=== PATIENT | female | born 2000 | race Caucasian/White ===

== ENCOUNTER 2019-06-29 21:21 | Emergency (ER) | payer BC ==
[~2019-06-29] VITALS: Ht 160 cm; Wt 63.0 kg
[2019-06-29 21:41] LABS: ABSOLUTE NEUTROPHILS 2.7 thou/uL (1.4-8.2); BASOPHILS 0.6 % (0.0-2.0); HEMATOCRIT 38.7 % (37.0-47.0); HEMOGLOBIN 13.5 gm/dL (12.0-15.0); LYMPHOCYTES 51.9 % (24.0-44.0); MCH 30.3 pg (26.0-34.0); MCV 86.6 fL (80.0-100.0); MONOCYTES 6.4 % (1.0-8.0); PLATELET COUNT 227 thou/uL (150-400); POLYS 38.1 % (36.0-66.0); RBC 4.47 mil/uL (4.20-5.00)
[2019-06-29] MEDS ORDERED: ONDANSETRON HCL4 M2 PO (21:41)
[2019-06-29 21:47] LABS: URINE BILIRUBIN NEGATIVE (Negative); URINE BLOOD NEGATIVE (Negative); URINE CLARITY CLEAR; URINE COLOR YELLOW; URINE GLUCOSE-RANDOM* NEGATIVE (Negative); URINE KETONES NEGATIVE (Negative); URINE LEUKOCYTES-REFLEX NEGATIVE (Negative); URINE NITRITE-REFLEX NEGATIVE (Negative); URINE PROTEIN (DIPSTICK) NEGATIVE (Negative); URINE SPECIFIC GRAVITY <= 1.005 (1.005-1.035); URINE UROBILINOGEN 0.2 E.U./dl (0.2-1.0)
[2019-06-29 21:53] LABS: CALCIUM 9.4 mg/dL (8.5-10.1); POTASSIUM 3.5 mmol/L (3.5-5.1)
[2019-06-29 21:58] LABS: AMP/METHAMP Negative (Negative); BARBITURATES Negative (Negative); BENZODIAZEPINES Negative (Negative); COCAINE Negative (Negative); METHADONE Negative (Negative); OPIATES Negative (Negative); PCP Negative (Negative)
[2019-06-29 21:59] LABS: TOTAL BILIRUBIN 0.3 mg/dL (<0.1-1.0); TOTAL PROTEIN 8.4 g/dL (6.4-8.2)
[2019-06-29 22:50] VITALS: BP 108/81
--- NOTE | 2019-07-02 09:02 | EKG ---
[address] [place] [employer] [place] [address] ELECTROCARDIOGRAM REPORT Name: BRIGIDOKEENAN Room #: DEP SWATHI Torres#: [id number] ������������������ Admission: 06/29/19 ������������������ Attend Phys: Discharge: 06/29/19 ������������������ Date of : 89 Report #: [id number] ����������������������������������������������������������������� [id number] THIS REPORT FOR: //name// [facility] ED Test Date: 2019-06-29 Test Time: 22:22:31 Pat Name: KEENAN FOFANA Department: Room: Gender: F [employer]: as : 2000 Requested By: Camila Harrell Order Number: [id number] MD: David Goss Measurements Intervals [place] Rate: 79 P: 50 NH: 167 QRS: 53 QRSD: 74 T: 8 QT: 382 QTc: 438 Interpretive Statements Sinus rhythm No previous ECG available for comparison Electronically Signed On 07-02-2019 9:02:20 CDT by David Goss [email or web address] ��������������������������������������������� <ELECTRONICALLY SIGNED> ���������������������������������������� By: David Goss MD ��������������������������������������������� 07/02/19901 222 [id number] David Goss MD /EPI
== END 2019-06-29 22:50 | disposition home or self-care (01) ==
LOC: ER 21:21
PROVIDERS: Nurse Practitioner Family
DX: R11.2 Nausea with vomiting, unspecified (principal); F12.90 Cannabis use, unspecified, uncomplicated